=== PATIENT | female | born 2000 | race Caucasian/White ===

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

== ENCOUNTER 2022-09-09 01:51 | Emergency (ER) | payer OTHER ==
[~2022-09-09] VITALS: Ht 165.1 cm; Wt 90.7 kg
[2022-09-09] MEDS ORDERED: CIPRODEX 0.3%-7.5 ML OT (03:04)
== END 2022-09-09 03:16 | disposition home or self-care (01) ==
LOC: ED 01:51
DX: T16.1XXA Foreign body in right ear, initial encounter (principal); W22.8XXA Striking against or struck by other objects, initial encounter; Y93.89 Activity, other specified; Y92.89 Other specified places as the place of occurrence of the external cause; Y99.8 Other external cause status

== ENCOUNTER 2025-01-27 20:22 | Emergency (ER) | payer OTHER ==
[~2025-01-27] VITALS: Ht 165.1 cm; Wt 136.1 kg
[~2025-01-27 20:22] MED LIST changes: +CIPRODEX 0.3%-7.5 ML OT
[2025-01-27] MEDS ORDERED: FAMOTIDINE 50 ML IV ONE (20:45)
[2025-01-27] MEDS ORDERED: diphenhydrAMINE hydrochloride 50 MG/ML VIAL IV ONE (20:45)
== END 2025-01-27 22:17 | disposition home or self-care (01) ==
LOC: ED 20:22
DX: T78.1XXA Other adverse food reactions, not elsewhere classified, initial encounter (principal); K14.8 Other diseases of tongue; R22.1 Localized swelling, mass and lump, neck; Z91.018 Allergy to other foods; X58.XXXA Exposure to other specified factors, initial encounter

== ENCOUNTER 2025-06-26 12:00 | Emergency (ER) | payer SELFPAY ==
[~2025-06-26] VITALS: Ht 165.1 cm; Wt 136.1 kg
[2025-06-26] MEDS ORDERED: SODIUM CHLORIDE 0.9% 1,000 ML IV ONE (13:05)
[2025-06-26 13:06] LABS: BILIRUBIN Negative (Negative); BLOOD 3+ (Negative); CLARITY Cloudy (Clear); COLOR Orange (Yellow); KETONE Negative (Negative); LEUKO ESTERASE 2+ (Negative); NITRITE Negative (Negative); PH 8.0 (4.5-8.0); SPECIFIC GRAVITY 1.010 (1.001-1.030); UROBILINOGEN 0.2 E.U./dl (0.0-1.0)
[2025-06-26 13:19] LABS: BASO # 0.0 10*3/uL (0.0-0.1); BASO % 0.4 % (0.0-1.0); EOS # 0.2 10*3/uL (0.0-0.4); EOS % 1.4 % (1.0-4.0); MEAN CELL VOLUME 90.6 fl (81.0-99.0); MEAN CORPUSCULAR HGB 31.3 pg (27.0-31.0); MEAN PLATELET VOLUME 9.5 fl (9.6-12.3); MONO # 0.9 10*3/uL (0.1-1.0); MONO % 8.3 % (3.0-9.0); NEUT # 6.7 10*3/uL (2.3-7.9); NEUT % 64.2 % (47.0-73.0); NUCLEATED RED BLOOD CELL 0.0 % (0.0-0.0); NUCLEATED RED BLOOD CELL 0.0 10*3/uL (0.0-0.0); PLATELET COUNT AUTOMATED 286 10*3/uL (130-400); RED CELL DISTRI WIDTH 12.1 % (0-14.5)
[2025-06-26 13:21] LABS: BACTERIA TRACE; RBC TNTC rbc/hpf (0-2)
[2025-06-26 13:58] LABS: BUN 9 mg/dl (9-23)
[2025-06-26] MEDS ORDERED: MACROBID100 M1 PO (15:13)
[2025-06-26] MEDS ORDERED: Nitrofurantoin Monohydrate/N 100 MG CAP PO ONE (15:15)
== END 2025-06-26 15:34 | disposition home or self-care (01) ==
LOC: ED 12:00
PROVIDERS: Emergency Medicine; Nurse Practitioner Family
DX: N92.0 Excessive and frequent menstruation with regular cycle (principal); R42 Dizziness and giddiness; D25.9 Leiomyoma of uterus, unspecified; E28.2 Polycystic ovarian syndrome; Z87.42 Personal history of other diseases of the female genital tract; N30.01 Acute cystitis with hematuria